=== PATIENT | female | born 1960 | race African-American/Black ===

== ENCOUNTER 2022-07-08 19:20 | Inpatient (IN) | payer OTHER ==
[2022-07-08 20:35] VITALS: BMI 20.1
[2022-07-08] MEDS ORDERED: IBUPROFEN 400 MG TABLET (FP) PO PRN (22:06)
[2022-07-08] MEDS ORDERED: MAG HYDROX/AL HYDROX/SIMETH 30 ML UNIT-DOSE CUP PO PRN (22:06)
[2022-07-08] MEDS ORDERED: DICYCLOMINE HCL 10 MG CAPSULE PO PRN (22:06)
[2022-07-08] MEDS ORDERED: LOPERAMIDE HCL 2 MG CAPSULE PO PRN (22:06)
[2022-07-08] MEDS ORDERED: BENZOCAINE/MENTHOL (CHLORASEPTIC ) LOZENGE MM PRN (22:06)
[2022-07-08] MEDS ORDERED: guaiFENesin 200 MG/10 ML 10 ML UNIT-DOSE CUPS PO PRN (22:06)
[2022-07-08] MEDS ORDERED: BISMUTH SUBSALICYLATE 524 MG/30 ML PO PRN (22:06)
[2022-07-08] MEDS ORDERED: P-EPHED 60MG/TRIPROLIDI 2.5MG TABLET PO PRN (22:06)
[2022-07-08] MEDS ORDERED: IBUPROFEN 600 MG TABLET (FP) PO PRN (22:06)
[2022-07-08] MEDS ORDERED: POLYETHYLENE GLYCOL (HEALTHYLAX) 3350 17 GM PACKET PO PRN (22:06)
[2022-07-08] MEDS ORDERED: ONDANSETRON *ODT* 4 MG TABLET SL PRN (22:06)
[2022-07-08] MEDS ORDERED: MAGNESIUM HYDROX 2400MG/30ML ORAL SUSPENSION 30 ML CUP PO PRN (22:06)
[2022-07-08] MEDS ORDERED: ACETAMINOPHEN 325 MG TABLET (FP) PO PRN ×2 (22:06)
[2022-07-09] MEDS: PHENYTOIN NA EXTENDED 100 MG CAPSULE (FP) PO SCH ×4 (00:42→22:16)
[2022-07-09] MEDS: PRENATAL VITAMINS W/ FOLIC ACID TABLET (FP) PO SCH (10:45)
[2022-07-09] MEDS: diazePAM 5 MG TABLET PO PRN ×2 (10:46→22:17)
[2022-07-09] MEDS ORDERED: ALBUTEROL SO4 HFA INHALER IH PRN (12:12)
[2022-07-09] MEDS: LIDOCAINE 5% TOPICAL PATCH TP SCH ×2 (12:51→13:17)
[2022-07-09] MEDS: PANTOPRAZOLE 20 MG TABLET PO SCH (13:01)
[2022-07-09] MEDS: TRIAMTERENE AND HCTZ - 37.5 MG/25 MG CAPSULE PO SCH (13:10)
[2022-07-09] MEDS: BUDESONIDE/FORMETEROL FUMARATE 160/4.5 mcg INHALER IH SCH ×2 (13:12→22:16)
[2022-07-09 14:46] LABS: HEMATOCRIT 41.5 % (32.4-45.2); HEMOGLOBIN 13.4 GM/dL (10.7-15.3); MCH 27.3 pg (25.7-33.7); MCHC 32.2 g/dl (32.0-36.0); MEAN CELL VOLUME 84.7 fl (80-96); MEAN PLT VOLUME 9.6 fl (7.5-11.1); PLATELET COUNT 225 10^3/uL (134-434); WHITE BLOOD COUNT 6.7 K/mm3 (4.0-10.0)
[2022-07-09 14:54] LABS: CALCIUM 9.8 mg/dL (8.5-10.1)
[2022-07-09 14:55] LABS: ALBUMIN 3.4 g/dl (3.4-5.0); BLOOD UREA NITROGEN 8.4 mg/dL (7-18)
[2022-07-09 14:57] LABS: CREATININE 0.8 mg/dL (0.55-1.3)
[2022-07-09 14:59] LABS: BILIRUBIN,TOTAL 1.2 mg/dL (0.2-1)
[2022-07-09] MEDS: metFORMIN HCL 500 MG TABLET (FP) PO SCH (17:49)
[2022-07-09] MEDS: ATORVASTATIN CA 40 MG TABLET (FP) PO SCH (22:15)
[2022-07-09] MEDS: MELATONIN 5 MG TABLETS PO SCH (22:15)
[2022-07-09] MEDS: THIAMINE HCL 100 MG TABLET (FP) PO SCH (22:15)
[2022-07-09] MEDS: MONTELUKAST NA 10 MG TABLET PO SCH (22:16)
[2022-07-09] MEDS: LIDOCAINE PATCH REMOVAL MC SCH (22:16)
[2022-07-10] MEDS: PHENYTOIN NA EXTENDED 100 MG CAPSULE (FP) PO SCH ×3 (06:34→23:10)
[2022-07-10] MEDS: amLODIPine BESYLATE 10 MG TABLET (FP) PO SCH (06:34)
[2022-07-10] MEDS ORDERED: metoPROLOL SUCCINATE 25 MG TAB.SR.24H (FP) PO SCH ×2 (07:13→07:54)
[2022-07-10] MEDS: PANTOPRAZOLE 20 MG TABLET PO SCH (10:21)
[2022-07-10] MEDS: LIDOCAINE 5% TOPICAL PATCH TP SCH (10:21)
[2022-07-10] MEDS: TRIAMTERENE AND HCTZ - 37.5 MG/25 MG CAPSULE PO SCH (10:21)
[2022-07-10] MEDS: PRENATAL VITAMINS W/ FOLIC ACID TABLET (FP) PO SCH (10:21)
[2022-07-10] MEDS: BUDESONIDE/FORMETEROL FUMARATE 160/4.5 mcg INHALER IH SCH ×2 (10:22→22:36)
[2022-07-10 12:07] LABS: HIV INTERPRETATION NEGATIVE (NEGATIVE)
[2022-07-10] MEDS: chlordiazePOXIDE HCL 25 MG CAPSULE PO SCH ×3 (12:20→22:38)
[2022-07-10] MEDS: metFORMIN HCL 500 MG TABLET (FP) PO SCH (17:00)
[2022-07-10] MEDS: MELATONIN 5 MG TABLETS PO SCH (22:34)
[2022-07-10] MEDS: THIAMINE HCL 100 MG TABLET (FP) PO SCH (22:35)
[2022-07-10] MEDS: MONTELUKAST NA 10 MG TABLET PO SCH (22:36)
[2022-07-10] MEDS: LIDOCAINE PATCH REMOVAL MC SCH (23:11)
[2022-07-10] MEDS: ATORVASTATIN CA 40 MG TABLET (FP) PO SCH (23:11)
[2022-07-11] MEDS: chlordiazePOXIDE HCL 10 MG CAPSULE PO SCH ×4 (06:22→22:53)
[2022-07-11] MEDS: amLODIPine BESYLATE 10 MG TABLET (FP) PO SCH (06:23)
[2022-07-11] MEDS: PHENYTOIN NA EXTENDED 100 MG CAPSULE (FP) PO SCH ×3 (06:24→22:53)
[2022-07-11] MEDS: PRENATAL VITAMINS W/ FOLIC ACID TABLET (FP) PO SCH (10:25)
[2022-07-11] MEDS: PANTOPRAZOLE 20 MG TABLET PO SCH (10:25)
[2022-07-11] MEDS: BUDESONIDE/FORMETEROL FUMARATE 160/4.5 mcg INHALER IH SCH ×2 (10:26→22:53)
[2022-07-11] MEDS: TRIAMTERENE AND HCTZ - 37.5 MG/25 MG CAPSULE PO SCH (10:26)
[2022-07-11] MEDS: LIDOCAINE 5% TOPICAL PATCH TP SCH (10:27)
[2022-07-11] MEDS: metFORMIN HCL 500 MG TABLET (FP) PO SCH (17:31)
[2022-07-11] MEDS: THIAMINE HCL 100 MG TABLET (FP) PO SCH (22:52)
[2022-07-11] MEDS: ATORVASTATIN CA 40 MG TABLET (FP) PO SCH (22:52)
[2022-07-11] MEDS: MONTELUKAST NA 10 MG TABLET PO SCH (22:53)
[2022-07-11] MEDS: MELATONIN 5 MG TABLETS PO SCH (22:53)
[2022-07-12] MEDS: LIDOCAINE PATCH REMOVAL MC SCH (00:06)
[2022-07-12] MEDS ORDERED: chlordiazePOXIDE HCL 10 MG CAPSULE PO SCH (05:00)
[2022-07-12] MEDS: PHENYTOIN NA EXTENDED 100 MG CAPSULE (FP) PO SCH (06:13)
[2022-07-12] MEDS: amLODIPine BESYLATE 10 MG TABLET (FP) PO SCH (06:13)
[2022-07-12 10:06] VITALS: BP 154/94; PULSE 89; RESP 16; TEMP 98
[2022-07-12] MEDS: PANTOPRAZOLE 20 MG TABLET PO SCH (11:05)
[2022-07-12] MEDS: TRIAMTERENE AND HCTZ - 37.5 MG/25 MG CAPSULE PO SCH (11:05)
[2022-07-12] MEDS: PRENATAL VITAMINS W/ FOLIC ACID TABLET (FP) PO SCH (11:05)
[2022-07-12] MEDS: LIDOCAINE 5% TOPICAL PATCH TP SCH (11:05)
[2022-07-12] MEDS: BUDESONIDE/FORMETEROL FUMARATE 160/4.5 mcg INHALER IH SCH (11:05)
[2022-07-13] MEDS ORDERED: chlordiazePOXIDE HCL 10 MG CAPSULE PO ONE (05:00)
== END 2022-07-12 11:18 | disposition home or self-care (01) | DRG 774 ==
LOC: YASAS 19:20 → Y6N 23:27 → UNDOADMIN 23:27 → Y6N 07-09 07:27
PROVIDERS: ADMIT Allergy & Immunology; ATTEND Surgery
PROC: HZ2ZZZZ Detoxification Services for Substance Abuse Treatment (ICD-10-PCS; principal; 2022-07-08)
DX: F10.230 Alcohol dependence with withdrawal, uncomplicated (principal); F14.20 Cocaine dependence, uncomplicated; F17.210 Nicotine dependence, cigarettes, uncomplicated; G40.909 Epilepsy, unspecified, not intractable, without status epilepticus; I10 Essential (primary) hypertension; J45.909 Unspecified asthma, uncomplicated; E11.9 Type 2 diabetes mellitus without complications; Z79.84 Long term (current) use of oral hypoglycemic drugs; M17.0 Bilateral primary osteoarthritis of knee; Z59.00 Homelessness unspecified
CPT/HCPCS: 36415; 71045-TC-FY; 80053; 80185; 82962; 85027; 86593; 86780; 87389; 87811; C9803-CS; U0003; U0005